=== PATIENT | male | born 1980 | race Caucasian/White ===

== ENCOUNTER 2019-01-03 23:50 | Emergency (ER) | payer OTHER ==
[2019-01-04] MEDS ORDERED: Ketorolac 60 MG/2 ML SDV IM ONE (00:22)
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
--- NOTE | 2019-01-04 00:42 | CR ---
INDICATION: Right lower rib pain TECHNIQUE: Chest and right ribs 2 views. COMPARISON: None FINDINGS: Cardiovascular and mediastinum: Heart size and vasculature are normal in caliber and appearance. Mediastinum is within normal limits. Lungs and pleural spaces: Lungs are clear. No sign of infiltrate or mass. No sign of pleural effusion. No pneumothorax. Bones and soft tissues: Detailed oblique images of the right ribs demonstrate no fractures or bone lesions. IMPRESSION: Unremarkable chest and right ribs. Dictated by Praful Boogie MD @ 01/04/2019 12:42:08 AM Dictated by: Praful Boogie MD @ 01/04/2019 00:42:15 (Electronically Signed)
== END 2019-01-04 01:05 | disposition home or self-care (01) ==
LOC: MW.ED 23:50 → MW.MS 01-04 00:17 → MW.ED 01-04 00:17
DX: S29.9XXA Unspecified injury of thorax, initial encounter (principal); F17.200 Nicotine dependence, unspecified, uncomplicated; V86.99XA Unspecified occupant of other special all-terrain or other off-road motor vehicle injured in nontraffic accident, initial encounter
CPT/HCPCS: 71101; 96372; 99283; J1885